=== PATIENT | female | born 1950 | race Caucasian/White ===

== ENCOUNTER 2021-09-07 18:44 | Inpatient (IN) | payer MEDICARE ==
[2021-09-07 20:20] VITALS: BMI 16.1
[2021-09-07] MEDS ORDERED: Acetaminophen 325 MG TAB PO PRN (20:23)
[2021-09-07] MEDS ORDERED: Melatonin 3 MG TAB PO PRN (20:32)
[2021-09-07] MEDS ORDERED: Arformoterol 15 MCG/2 ML NEB NEB SCH (20:45)
[2021-09-07] MEDS ORDERED: rOPINIRole HCl 1 MG TAB PO SCH (21:00)
[2021-09-07] MEDS: Gabapentin 300 MG CAP PO SCH (22:09)
[2021-09-07] MEDS: busPIRone HCl 5 MG TAB PO SCH (22:11)
[2021-09-07] MEDS: methylPREDNISolone Sod Succ 40 MG VIAL IVP SCH (22:11)
[2021-09-08 04:21] LABS: Hemoglobin 11.2 g/dL (12.0-15.5); Mean Corpuscular HGB CONC 32.5 g/dL (32.0-36.0); Mean Corpuscular Hemoglobin 28.1 pg (27.0-33.0); Mean Corpuscular Volume 86.5 fl (81.6-98.3); Mean Platelet Volume 9.6 fl (7.4-10.4); Platelet Count 294 10x3/uL (150-450); RBC Distribution Width 15.7 % (11.5-14.5); Red Blood Cell (RBC) Count 3.99 10x6/uL (3.90-5.03); White Blood Cell (WBC) Count 24.5 10x3/uL (3.5-10.5)
[2021-09-08 04:38] LABS: Anion Gap 12 mmol/L (10-20); BUN (Urea Nitrogen) 11 mg/dL (9.8-20.1); Calc. Creatinine Clearance 62 mL/min (70-130); Calcium 8.9 mg/dL (7.8-10.44); Carbon Dioxide 24 mmol/L (23-31); Chloride 108 mmol/L (98-107); Glucose 129 mg/dL (83-110); Magnesium 2.1 mg/dL (1.6-2.6); Potassium 3.8 mmol/L (3.5-5.1); Sodium 140 mmol/L (136-145)
[2021-09-08 05:14] LABS: MDiff Complete? YES
[2021-09-08 05:17] LABS: Band 10 % (5-11); Lymphocytes 2 % (21-51); Monocytes 2 % (0-10); Neutrophil 86 % (42-75)
[2021-09-08 05:18] LABS: Platelet Morphology Comment Appears Adequate; RBC Morphology Normal
[2021-09-08] MEDS: methylPREDNISolone Sod Succ 40 MG VIAL IVP SCH ×3 (06:46→21:29)
[2021-09-08] MEDS: Levothyroxine Sodium 50 MCG TAB PO SCH (06:46)
[2021-09-08] MEDS: Arformoterol 15 MCG/2 ML NEB NEB SCH ×2 (06:50→19:01)
[2021-09-08] MEDS: Budesonide 0.5 MG/2 ML NEB NEB SCH ×2 (06:55→19:02)
[2021-09-08] MEDS ORDERED: Enoxaparin Sodium 30 MG/0.3 ML SYRINGE SC SCH (09:00)
[2021-09-08] MEDS: Aspirin 81 mg Enteric Coated Tablet PO SCH (09:52)
[2021-09-08] MEDS: busPIRone HCl 5 MG TAB PO SCH ×2 (09:53→21:28)
[2021-09-08] MEDS: Gabapentin 300 MG CAP PO SCH ×3 (09:53→21:28)
[2021-09-08] MEDS: cefTRIAXone\\ROCEPHIN 1 GM in Sodium Chloride 0.9% 100 ML IVPB SCH (14:53)
[2021-09-08] MEDS: Azithromycin 500 MG in Sodium Chloride 0.9% 250 ML 250 ML IVPB SCH (15:01)
[2021-09-08] MEDS: rOPINIRole HCl 1 MG TAB PO SCH (21:28)
[2021-09-08 22:04] LABS: SARS-CoV-2 PCR by NAA Not Detected (NotDetected)
[2021-09-09 04:16] LABS: #Monocytes 0.5 10x3/uL (0.0-1.1); #Neutrophils 17.8 10x3/uL (1.5-8.4); %Basophils 0.1 % (0.0-2.0); %Lymphocytes 5.6 % (18.0-47.0); %Monocytes 2.4 % (0.0-10.0); %Neutrophils 91.2 % (40.0-75.0); Hemoglobin 10.2 g/dL (12.0-15.5); Mean Corpuscular HGB CONC 32.2 g/dL (32.0-36.0); Mean Corpuscular Hemoglobin 28.3 pg (27.0-33.0); Mean Corpuscular Volume 88.1 fl (81.6-98.3); Mean Platelet Volume 9.7 fl (7.4-10.4); Platelet Count 292 10x3/uL (150-450); RBC Distribution Width 15.9 % (11.5-14.5); White Blood Cell (WBC) Count 19.5 10x3/uL (3.5-10.5)
[2021-09-09 04:41] LABS: Anion Gap 10 mmol/L (10-20); BUN (Urea Nitrogen) 14 mg/dL (9.8-20.1); Calc. Creatinine Clearance 60 mL/min (70-130); Calcium 8.9 mg/dL (7.8-10.44); Carbon Dioxide 27 mmol/L (23-31); Chloride 107 mmol/L (98-107); Glucose 123 mg/dL (83-110); Potassium 4.2 mmol/L (3.5-5.1); Sodium 140 mmol/L (136-145)
[2021-09-09] MEDS: Levothyroxine Sodium 50 MCG TAB PO SCH (06:25)
[2021-09-09] MEDS: methylPREDNISolone Sod Succ 40 MG VIAL IVP SCH ×2 (06:29→14:59)
[2021-09-09] MEDS: Arformoterol 15 MCG/2 ML NEB NEB SCH ×2 (06:40→18:41)
[2021-09-09] MEDS: Budesonide 0.5 MG/2 ML NEB NEB SCH ×2 (06:45→18:42)
[2021-09-09] MEDS: Gabapentin 300 MG CAP PO SCH ×3 (08:48→21:37)
[2021-09-09] MEDS: busPIRone HCl 5 MG TAB PO SCH ×2 (08:48→21:37)
[2021-09-09] MEDS: rOPINIRole HCl 1 MG TAB PO SCH ×3 (08:48→21:37)
[2021-09-09] MEDS: Aspirin 81 mg Enteric Coated Tablet PO SCH (08:48)
[2021-09-09] MEDS: Enoxaparin Sodium 40 MG/0.4 ML SYRINGE SC SCH (10:00)
[2021-09-09] MEDS: cefTRIAXone\\ROCEPHIN 1 GM in Sodium Chloride 0.9% 100 ML IVPB SCH (14:55)
[2021-09-09] MEDS: Azithromycin 500 MG in Sodium Chloride 0.9% 250 ML 250 ML IVPB SCH (15:55)
[2021-09-10 04:07] LABS: #Neutrophils 8.3 10x3/uL (1.5-8.4); %Lymphocytes 23.3 % (18.0-47.0); %Monocytes 8.5 % (0.0-10.0); %Neutrophils 67.7 % (40.0-75.0); Hemoglobin 9.3 g/dL (12.0-15.5); Mean Corpuscular HGB CONC 32.1 g/dL (32.0-36.0); Mean Corpuscular Hemoglobin 28.2 pg (27.0-33.0); Mean Corpuscular Volume 87.9 fl (81.6-98.3); Mean Platelet Volume 10.2 fl (7.4-10.4); Platelet Count 260 10x3/uL (150-450); RBC Distribution Width 15.9 % (11.5-14.5); White Blood Cell (WBC) Count 12.3 10x3/uL (3.5-10.5)
[2021-09-10] MEDS: Levothyroxine Sodium 50 MCG TAB PO SCH (05:48)
[2021-09-10] MEDS: Arformoterol 15 MCG/2 ML NEB NEB SCH (06:50)
[2021-09-10] MEDS: Budesonide 0.5 MG/2 ML NEB NEB SCH (06:55)
[2021-09-10] MEDS: Enoxaparin Sodium 40 MG/0.4 ML SYRINGE SC SCH (07:51)
[2021-09-10] MEDS: busPIRone HCl 5 MG TAB PO SCH (07:52)
[2021-09-10] MEDS: Gabapentin 300 MG CAP PO SCH ×2 (07:52→14:02)
[2021-09-10] MEDS: Aspirin 81 mg Enteric Coated Tablet PO SCH (07:52)
[2021-09-10] MEDS: rOPINIRole HCl 1 MG TAB PO SCH ×2 (07:52→14:02)
[2021-09-10] MEDS ORDERED: methylPREDNISolone Sod Succ 40 MG VIAL IVP SCH (09:00)
[2021-09-10 12:11] VITALS: BP 137/70; TEMP 98.2
[2021-09-10] MEDS: cefTRIAXone\\ROCEPHIN 1 GM in Sodium Chloride 0.9% 100 ML IVPB SCH (13:12)
[2021-09-10] MEDS ORDERED: Azithromycin 250 MG TAB PO SCH (15:00)
== END 2021-09-10 15:00 | disposition home or self-care (01) | DRG 177 ==
LOC: CSHTELE 18:44
PROVIDERS: ADMIT Internal Medicine; ATTEND Internal Medicine
DX: J69.0 Pneumonitis due to inhalation of food and vomit (principal); J96.01 Acute respiratory failure with hypoxia; J44.1 Chronic obstructive pulmonary disease with (acute) exacerbation; E44.1 Mild protein-calorie malnutrition; Z68.1 Body mass index [BMI] 19.9 or less, adult; E83.42 Hypomagnesemia; I10 Essential (primary) hypertension; E03.9 Hypothyroidism, unspecified; F17.210 Nicotine dependence, cigarettes, uncomplicated; R13.12 Dysphagia, oropharyngeal phase; F41.9 Anxiety disorder, unspecified; F32.A Depression, unspecified; Z66 Do not resuscitate; Z20.822 Contact with and (suspected) exposure to COVID-19; Z79.82 Long term (current) use of aspirin; Z90.710 Acquired absence of both cervix and uterus; Z90.49 Acquired absence of other specified parts of digestive tract; Z79.899 Other long term (current) drug therapy
CPT/HCPCS: 36415; 74230; 80048; 83735; 85025; 94640; 94760; J0456; J0696; J1650; J2920; J3490; J7050; J7620; J7626; U0003; U0005